=== PATIENT | male | born 1960 | race Caucasian/White ===

== ENCOUNTER 2018-10-16 18:58 | Emergency (ER) | payer SELFPAY ==
[~2018-10-16] VITALS: Wt 83.0 kg
--- NOTE | 2018-10-16 22:58 | ERD ---
ER Documentation Chief Complaint Chief Complaint low back pain/legs pain, states glf at work around 10 am HPI 58-year-old male, presents the emergency department, complaining of bilateral l ower back pain radiating to the lower extremities after a ground-level fall that occurred at work today approximately 10 AM. The patient denies distal weakness, numbness or tingling, no incontinence. The pain is dull, constant, 6/10. No reports of head injury. ROS All systems reviewed and are negative except as per history of present illness. Medications Home Meds Active Scripts Baclofen* (Baclofen*) 10 Mg Tablet, 10 MG PO QHS, #10 TAB Prov:AWAIS GARZA MD 10/17/18 Ibuprofen* (Motrin*) 400 Mg Tab, 400 MG PO Q6H PRN for PAIN AND OR ELEVATED TEM P, #20 TAB Prov:AWAIS GARZA MD 10/17/18 Hydrocodone/Acetaminophen ([place] 5-325 Tablet) 1 Each Tablet, 1 TAB PO BID PRN for PAIN, #10 TAB Prov:AWAIS GARZA MD 10/17/18 Allergies Allergies: Coded Allergies: No Known Drug Allergies (Verified Allergy, Unknown, 10/16/18) PMhx/Soc Medical and Surgical Hx: pt denies Medical Hx, pt denies Surgical Hx Hx Alcohol Use: No Hx Substance Use: No Hx Tobacco Use: No Smoking Status: Never smoker FmHx Family History: No diabetes, No coronary disease Physical Exam Vitals Vital Signs Date Temp Pulse Resp B/P (MAP) Pulse Ox O2 O2 Flow FiO2 Time Delivery Rate 10/17/18 97.2 80 19 138/87 99 Room Air 00:48 (104) 10/16/18 98.6 91 18 145/90 97 19:30 (108) Physical Exam Patient is in no acute distress, vital signs stable. Alert and fully oriented. EYES: PERRLA, EOMI, Sclera and conjunctiva appear normal. EARS: Canals clear, tympanic membranes WNL THROAT: Normal oropharynx. NECK: Supple, No lymphadenopathy. Full ROM without pain or tenderness. HEART: RRR, no rubs, murmurs, clicks or gallops. LUNGS: Clear to auscultation. ABDOMEN: Soft, non-tender without masses or hepatosplenomegaly. EXTREMITIES: No edema bilaterally. BACK: Normal inspection, no bruises, no rashes, no deformity, decreased range of motion for lateral rotation and flexion. No vertebral tenderness, bilateral lower muscle spasm. NEURO: Cranial nerves grossly intact, no motor or sensory deficit Results 24 hrs Current Medications Medications Dose Sig/Richard Start Time Status Last (Trade) Ordered Route PRN Stop Time Admin Dose Reason Admin Morphine 10 mg ONCE ONCE 10/16/18 DC 10/16/18 Sulfate PO 23:30 23:21 (morphine) 10/16/18 23:31 Ibuprofen 600 mg ONCE ONCE 10/16/18 DC 10/16/18 (Motrin) PO 23:30 23:20 10/16/18 23:31 650 mg ONCE ONCE 10/16/18 DC 10/16/18 Acetaminophen PO 23:30 23:21 (Tylenol 10/16/18 23:31 Tab) Ondansetron 4 mg ONCE STAT 10/16/18 DC 10/16/18 HCl (Zofran ODT 23:04 23:20 Odt) 10/16/18 23:17 Patient: SUKHDEV CARTER : 1960 Age: 58 Sex: M MR #: [id number] DOS: 10/16/18 2304 Ordering MD: AWAIS GARZA MD Location: [facility] Room/Bed: PROCEDURE: CT pelvis without contrast. CLINICAL INDICATION: Pelvic pain following a fall TECHNIQUE: CT scan of the pelvis without contrast was performed. Sagittal and coronal reformatted images were obtained from the axial source images. CTDI = 7.15 mGy; DLP = 229.15 mGy-cm. DICOM images are available. One or more of the following dose reduction techniques were used: Automated exposure control, adjustment of the mA and/or kV according to patient size, use of iterative reconstruction technique. COMPARISON: None available. FINDINGS: Osseous structures: Bone mineralization and architecture are normal. There is no evidence of fracture, hip dislocation, focal bone demineralization or periosteal reaction. The sacrum, coccyx and sacroiliac joints are unremarkable. The pelvic bones are unremarkable. The femoral heads are normal in contour and location. There is no evidence of joint erosion. Musculature and soft tissues: Asymmetric muscular enlargement involve medial compartment of the included right thigh is concerning for post traumatic edema. There is some the subcutaneous fat stranding anterior to the pubic symphysis with some edema in the pelvis surrounding the urinary bladder Other findings: Atherosclerotic calcification of the aorta and iliac systems is present RPTAT:HJJR IMPRESSION: 1. There is no evidence for acute pelvic bone or proximal femoral fracture. 2. Post traumatic soft tissue edema is suspected within the medial compartment of the right thigh, the adductor muscle group. 3. Post traumatic edema surrounding the urinary bladder and anterior to the pubic symphysis is suspected. Patient: SUKHDEV CARTER : 1960 Age: 58 Sex: M MR #: [id number] DOS: 10/16/18 2304 Ordering MD: AWAIS GARZA MD Location: [facility] Room/Bed: PROCEDURE: CT Lumbar Spine without contrast. CLINICAL INDICATION: Low back pain following a fall. TECHNIQUE: CT of the lumbar spine without contrast was performed. Axial images were obtained through the lumbar spine and reformatted at 2.5 mm slice thickness. Coronal and sagittal images were reformatted. DICOM images are available. One or more of the following dose reduction techniques were used: Automated exposure control, adjustment of the mA and/or kV according to patient size, use of iterative reconstruction technique. The CTDIvol = 16 mGy and DLP = 569.45 mGy-cm. COMPARISON: None available FINDINGS: Vertebral bodies: Bone architecture, mineralization and stature are preserved at every level. There is grade 1 anterolisthesis at L4-5 estimated at 5 mm. Mild anterior enthesopathy is seen from L3-S1. Conus medularis region: Normal in attenuation and termination estimated at the L1 level. T12-L1: No discogenic abnormality of significance is seen. There is no facet arthropathy. The central canal is patent. There is no evidence for foraminal stenosis.No posterior element fracture is identified. L1-L2: No discogenic abnormality of significance is seen. There is no facet arthropathy. The ligamentum flava are normal in thickness. The central canal is patent. There is no evidence for foraminal stenosis.No posterior element fracture is identified. L2-L3: No discogenic abnormality of significance is seen. Mild bilateral facet arthropathy is present. The ligamentum flava are normal in thickness. The central canal is patent. There is no evidence for foraminal stenosis.No posterior element fracture is identified. L3-L4: Preserved disc stature with annular disc bulging. Mild bilateral facet arthropathy is present. The ligamentum flava are normal in thickness. Mild central canal stenosis is present. There is no evidence for significant foraminal stenosis.No posterior element fracture is identified. L4-L5: Moderate loss of disc stature with 6 mm of circumferential disc material extending into the foramina. Severe bilateral facet arthropathy is present. The ligamentum flava are normal in thickness. Severe central canal stenosis and severe bilateral lateral recess narrowing is demonstrated. Disc material causes severe bilateral foraminal stenosis with extrinsic mass effect upon the L4 nerve roots. No posterior element fracture is identified. L5-S1: Vacuum disc phenomenon with severe loss of disc stature mild retrolisthesis. Osteophyte and disc complex of 5 mm extends into the foramina. Moderate bilateral facet arthropathy is seen. The ligamentum flava are normal in thickness. The central canal is patent. Severe bilateral foraminal stenosis greater on the left impinges upon the L5 nerve roots. No posterior element fracture is identified. Sacrum and sacroiliac joints: No abnormalities are identified, the joints are normal and symmetric. None spine related findings: Atherosclerotic calcification of the aorta is present. RPTAT:HJJR IMPRESSION: 1. There is no evidence of fracture involving the lumbosacral spine. 2. Severe central canal stenosis at L4-5 caused by a circumferential disc protrusion, facet arthropathy and grade 1 anterolisthesis with severe bilateral lateral recess and foraminal narrowing also present. 3. Significant degenerative disc narrowing at L5-S1 with minimal retrolisthesis, osteophyte and disc complex causing significant bilateral foraminal stenosis without central canal narrowing. 4. Mild central canal stenosis at L3-4 caused by annular disc bulging at facet arthropathy Procedures/MDM At the time of discharge, patient nontoxic, ambulating, vital signs stable, no gross neurologic deficit. differential diagnosis include but not limited to: lumbar sprain/strain, sciatica, herniated disk; Neurovascular exam grossly intact. no clinical findings suggestive of acute infectious process, no acute deformity, no edema, no rashes. Physical examination and clinical presentation consistent most likely with acute back pain with soft tissue contusion. Results and clinical impression discussed with the patient who agrees with management. The patient is stable to be treated outpatient and will be discharged home with recommendations and close monitoring The patient was informed that the evaluation in the emergency department has been done to rule out an acute emergency, therefore, chronic conditions like malignancy or autoimmune diseases have not been evaluated; therefore, the patient was instructed to follow up with the primary care provider in the next 48h. If symptoms persist, worsen or new symptoms develop, then patient should return to the ED immediately. Instructions explained and given to patient with acknowledgment and demonstrated understanding. Disclaimer: Inadvertent spelling and grammatical errors are likely due to EHR/dictation software use and do not reflect on the overall quality of patient care. Also, please note that the electronic time recorded on this note does not necessarily reflect the actual time of the patient encounter. Departure Diagnosis: Primary Impression: Work related injury Additional Impression: Back pain Condition: Stable Patient Instructions: Back Pain (Acute Or Chronic) Additional Instructions: Thank you very much for allowing us to participate in your care. Your health and safety is our top priority at [facility]. The evaluation in the emergency department has been done to rule out an acute emergency, therefore, chronic conditions like malignancy or other diseases have not been evaluated; therefore, you need to follow up with a primary care provider in the next 48h. If symptoms persist, worsen or new symptoms develop, then patient should return to the ED immediately. Call your primary care doctor TOMORROW for an appointment during the next 2-4 days and bring all the information provided. Have prescriptions filled and follow precisely the directions on the label. If the symptoms get worse and your provider is unavailable, return to the Emergency Department immediately. AWAIS GARZA MD October 16, 2018 22:58
[2018-10-16] MEDS ORDERED: ONDANSETRON (ODT) 4 MG TAB ODT STA (23:04)
[2018-10-16] MEDS ORDERED: IBUPROFEN 600 MG TAB PO ONE (23:30)
[2018-10-16] MEDS ORDERED: ACETAMINOPHEN 325 MG TAB PO ONE (23:30)
[2018-10-16] MEDS ORDERED: morphine LIQ (10 MG/5 ML) CUP PO ONE (23:30)
[2018-10-17] MEDS ORDERED: IBUP-1561 PO (00:37)
[2018-10-17] MEDS ORDERED: HYDR-4011 PO (00:37)
[2018-10-17] MEDS ORDERED: BACL10TA PO (00:37)
[2018-10-17 00:48] VITALS: BP 138/87; PULSE 80; RESP 19
== END 2018-10-17 00:49 | disposition home or self-care (01) ==
LOC: FTE 18:58
DX: M54.5 Low back pain (principal)
CPT/HCPCS: 72131; 72192

== ENCOUNTER 2018-10-23 14:10 | Emergency (ER) | payer SELFPAY ==
[~2018-10-23] VITALS: Ht 177.8 cm; Wt 80.8 kg
[~2018-10-23 14:10] MED LIST: BACL10TA PO; HYDR-4011 PO; IBUP-1561 PO
[2018-10-23 14:13] VITALS: Ht 177.8 cm; Wt 80.8 kg
--- NOTE | 2018-10-23 14:50 | ERD ---
ER Documentation Chief Complaint Chief Complaint rt side inguinal pain since tuesday HPI The patient is a 58-year-old male, presenting to the ER because of right inguinal hernia pain for 3 days, had similar symptoms previously. He was seen in the ER about a week ago because he fell at work, had a lumbar CT that showed disc protrusion at L4 and L5. He denies fever, fecal/urinary incontinence, headache, neck pain, chest pain, vomiting, dysuria, diarrhea. Medical history: Hypertension, CAD Past surgical history: Right inguinal herniorrhaphy ROS All systems reviewed and are negative except as per history of present illness. Medications Home Meds Active Scripts Ibuprofen* (Motrin*) 600 Mg Tab, 600 MG PO Q6H PRN for PAIN AND OR ELEVATED TEMP, #30 TAB Prov:AJ KEYES MD 10/23/18 Hydrocodone/Acetaminophen ([place] 5-325 Tablet) 1 Each Tablet, 1 TAB PO Q6H PRN for PAIN, #7 TAB Prov:AJ KEYES MD 10/23/18 Ibuprofen* (Motrin*) 600 Mg Tab, 600 MG PO Q6H PRN for PAIN AND OR ELEVATED TEMP, #30 TAB Prov:AJ KEYES MD 10/23/18 Hydrocodone/Acetaminophen ([place] 5-325 Tablet) 1 Each Tablet, 1 TAB PO Q6H PRN for PAIN, #7 TAB Prov:AJ KEYES MD 10/23/18 Baclofen* (Baclofen*) 10 Mg Tablet, 10 MG PO QHS, #10 TAB Prov:AWAIS GARZA MD 10/17/18 Ibuprofen* (Motrin*) 400 Mg Tab, 400 MG PO Q6H PRN for PAIN AND OR ELEVATED TEMP, #20 TAB Prov:AWAIS GARZA MD 10/17/18 Hydrocodone/Acetaminophen ([place] 5-325 Tablet) 1 Each Tablet, 1 TAB PO BID PRN for PAIN, #10 TAB Prov:AWAIS GARZA MD 10/17/18 Allergies Allergies: Coded Allergies: No Known Drug Allergies (Verified Allergy, Unknown, 10/16/18) PMhx/Soc Hx Alcohol Use: No Hx Substance Use: No Hx Tobacco Use: No Physical Exam Vitals Vital Signs Date Temp Pulse Resp B/P (MAP) Pulse Ox O2 O2 Flow FiO2 Time Delivery Rate 10/23/18 98.1 77 19 134/76 100 Room Air 15:39 (95) 10/23/18 98.2 102 18 168/97 99 14:13 (120) Physical Exam Const: No acute distress. Head: Atraumatic. Eyes: Normal Conjunctiva. ENT: Normal External Ears, Nose and Mouth. Neck: Full range of motion. No meningismus. Resp: Clear to auscultation bilaterally. Cardio: Regular rate and rhythm. Abd: Soft, non distended, normal bowel sounds, non tender. Small right inguinal hernia, reducible Skin: No petechiae or rashes. Back: No midline or flank tenderness. Ext: No cyanosis, or edema. Neur: Awake and alert. No focal deficit Psych: Normal Mood and Affect. Procedures/MDM MEDICAL MAKING DECISION: The patient is a 58-year-old male, presenting with small right inguinal hernia, is stable for outpatient follow-up The differential diagnoses for acute abdominal pain considered include but are not limited to cholelithiasis, cholecystitis, choledocholithiasis, cholangitis, pancreatitis, hepatitis, gastritis, peptic ulcer disease, gastric ulcer, appendicitis, cystitis, diverticulitis, partial small bowel obstruction. The differential diagnoses for acute back pain considered include but are not limited to caudal equina syndrome, spinal abscess, DJD, diskitis, lumbar radiculopathy. Departure Diagnosis: Primary Impression: Hernia, inguinal, right Additional Impression: Protruded lumbar disc Condition: Good Comments He was discharged with 7 tablets of [place] 5 mg, Motrin I discussed the findings with the patient. I advised the patient to follow-up with the primary physician in about 2-3 days, sooner if needed and return if any concern, advised to have back MRI for further eval. Disclaimer: Inadvertent spelling and grammatical errors are likely due to EHR/dictation software use and do not reflect on the overall quality of patient care. Also, please note that the electronic time recorded on this note does not necessarily reflect the actual time of the patient encounter. AJ KEYES MD October 23, 2018 14:50
[2018-10-23] MEDS ORDERED: IBUP-1542 PO ×2 (15:16→15:19)
[2018-10-23] MEDS ORDERED: HYDR-4011 PO ×2 (15:16→15:19)
[2018-10-23 15:39] VITALS: BP 134/76; PULSE 77; RESP 19
== END 2018-10-23 15:39 | disposition home or self-care (01) ==
LOC: E/R 14:10
DX: K40.90 Unilateral inguinal hernia, without obstruction or gangrene, not specified as recurrent (principal); M51.06 Intervertebral disc disorders with myelopathy, lumbar region; M51.26 Other intervertebral disc displacement, lumbar region; I25.10 Atherosclerotic heart disease of native coronary artery without angina pectoris; I10 Essential (primary) hypertension
CPT/HCPCS: 99283